=== PATIENT | male | born 1975 | race Caucasian/White ===

== ENCOUNTER 2021-05-25 08:11 | Emergency (ER) | payer MEDICARE, OTHER ==
[~2021-05-25] VITALS: Ht 177.8 cm; Wt 68.2 kg
[2021-05-25] MEDS ORDERED: NORCO 10-325 T1 EACH PO ×2 (08:29→11:27)
[2021-05-25] MEDS ORDERED: DESYREL 100MG100 MG (08:29)
[2021-05-25] MEDS ORDERED: ATIVAN0.5 MG (08:29)
[2021-05-25 08:41] LABS: EOS # 0.38 K/mm3 (0.04-0.40); EOS % 2.5 % (0.0-4.0); HEMATOCRIT 46.4 % (42.0-52.0); LYMPH# 2.37 K/mm3 (1.50-4.00); MEAN CELL VOLUME 83 fl (78-100); MEAN CORPUSCULAR HEMOGLOBIN 27 pg (27-31); MEAN CORPUSCULAR HGB CONC 32 g/dL (33-37); MEAN PLATELET VOLUME 8.7 fl (7.4-10.4); NEU # 11.35 K/mm3 (1.40-6.50); PLATELET COUNT 315 K/mm3 (130-400); WHITE BLOOD COUNT 15.1 K/mm3 (4.8-10.8)
[2021-05-25 08:46] LABS: ALBUMIN 4.5 g/dL (3.5-5.0)
[2021-05-25 08:47] LABS: POTASSIUM 3.8 mmol/L (3.5-5.1); SODIUM 138 mmol/L (136-145)
[2021-05-25 08:48] LABS: CALCIUM 9.6 mg/dL (8.3-10.5)
[2021-05-25 08:49] LABS: GLUCOSE 127 mg/dL (75-110); TOTAL PROTEIN 7.8 g/dL (6.4-8.3)
[2021-05-25 08:50] LABS: CARBON DIOXIDE 24 mmol/L (22-29)
[2021-05-25 08:51] LABS: TOTAL BILIRUBIN 0.6 mg/dL (0.2-1.2)
[2021-05-25 08:54] LABS: AST-SGOT 15 U/L (5-34)
[2021-05-25 08:56] LABS: ALT/SGPT 17 U/L (0-55); LIPASE 101 U/L (8-78)
[2021-05-25 09:06] LABS: TROPONIN-I < 0.03 ng/mL (<0.030)
[2021-05-25 10:32] LABS: PH-URINE 7.5 (5.0 - 8.0); URINE APPEARANCE CLEAR; URINE BILIRUBIN NEGATIVE (NEGATIVE); URINE BLOOD NEGATIVE (NEGATIVE); URINE COLOR YELLOW; URINE GLUCOSE NEGATIVE (NEGATIVE); URINE KETONE NEGATIVE (NEGATIVE); URINE LEUKOCYTE ESTERASE NEGATIVE (NEGATIVE); URINE MUCUS PRESENT (NOT PRESENT); URINE NITRATE NEGATIVE (NEGATIVE); URINE PROTEIN(semi-quant) TRACE mg/dL (NEGATIVE); URINE UROBILINOGEN NORMAL (NORMAL)
[2021-05-25] MEDS ORDERED: PEPCID 20MG TAB20 MG PO (12:06)
[2021-05-25] MEDS ORDERED: CARAFATE 1GM1 G PO (12:06)
[2021-05-25] MEDS ORDERED: PROTONIX TR40 M1 PO (12:06)
[2021-05-25 12:28] VITALS: BP 108/87
== END 2021-05-25 12:10 | disposition home or self-care (01) ==
LOC: ED 08:11
PROVIDERS: Physician Assistant
DX: K86.1 Other chronic pancreatitis (principal); K21.9 Gastro-esophageal reflux disease without esophagitis; F17.210 Nicotine dependence, cigarettes, uncomplicated; Z20.822 Contact with and (suspected) exposure to COVID-19
CPT/HCPCS: J1885; J2405; J3010; J7030; Q9967

== ENCOUNTER 2021-06-14 09:50 | Emergency (ER) | payer MEDICARE, OTHER ==
[~2021-06-14] VITALS: Ht 177.8 cm; Wt 68.2 kg
[~2021-06-14 09:50] MED LIST: ATIVAN0.5 MG PO; CARAFATE 1GM1 G PO; DESYREL 100MG100 MG PO; NORCO 10-325 T1 EACH PO; PEPCID 20MG TAB20 MG PO; PROTONIX TR40 M1 PO
[2021-06-14] MEDS ORDERED: [UNRECOGNIZED DRUG - CODE] PO ×2 (10:17→17:23)
[2021-06-14 10:22] LABS: BASO # 0.09 K/mm3 (0.02-0.10); EOS # 0.35 K/mm3 (0.04-0.40); HEMATOCRIT 45.7 % (42.0-52.0); HEMOGLOBIN 14.3 g/dL (13.5-18.0); LYMPH# 1.85 K/mm3 (1.50-4.00); MEAN CELL VOLUME 83 fl (78-100); MEAN CORPUSCULAR HEMOGLOBIN 26 pg (27-31); MEAN CORPUSCULAR HGB CONC 31 g/dL (33-37); MEAN PLATELET VOLUME 8.5 fl (7.4-10.4); MONO # 0.97 K/mm3 (0.20-0.80); NEU # 14.29 K/mm3 (1.40-6.50); PLATELET COUNT 364 K/mm3 (130-400); RED BLOOD COUNT 5.51 M/mm3 (4.20-5.60); WHITE BLOOD COUNT 17.6 K/mm3 (4.8-10.8)
[2021-06-14 10:34] LABS: ALBUMIN 4.3 g/dL (3.5-5.0); POTASSIUM 4.8 mmol/L (3.5-5.1); SODIUM 143 mmol/L (136-145)
[2021-06-14 10:36] LABS: CALCIUM 9.6 mg/dL (8.3-10.5)
[2021-06-14 10:37] LABS: GLUCOSE 108 mg/dL (75-110); TOTAL PROTEIN 7.7 g/dL (6.4-8.3)
[2021-06-14 10:38] LABS: CARBON DIOXIDE 25 mmol/L (22-29)
[2021-06-14 10:39] LABS: TOTAL BILIRUBIN 0.5 mg/dL (0.2-1.2)
[2021-06-14 10:42] LABS: AST-SGOT 19 U/L (5-34)
[2021-06-14 10:43] LABS: ALT/SGPT 16 U/L (0-55)
[2021-06-14 10:44] LABS: LIPASE 105 U/L (8-78)
[2021-06-14 10:50] LABS: TROPONIN-I < 0.030 ng/mL (<0.030)
[2021-06-14 14:17] LABS: URINE APPEARANCE CLEAR; URINE COLOR YELLOW
[2021-06-14 14:18] LABS: URINE BILIRUBIN NEGATIVE (NEGATIVE); URINE BLOOD NEGATIVE (NEGATIVE); URINE GLUCOSE NEGATIVE (NEGATIVE); URINE KETONE NEGATIVE (NEGATIVE); URINE LEUKOCYTE ESTERASE NEGATIVE (NEGATIVE); URINE MUCUS PRESENT (NOT PRESENT); URINE NITRATE NEGATIVE (NEGATIVE); URINE PROTEIN(semi-quant) TRACE (NEGATIVE); URINE UROBILINOGEN NORMAL (NORMAL)
[2021-06-14 14:39] VITALS: BP 122/80
[2021-06-14] MEDS ORDERED: FAMOTIDINE20 MG PO (17:25)
== END 2021-06-14 14:42 | disposition other institution (70) ==
LOC: ED 09:50
PROVIDERS: Physician Assistant
DX: K85.90 Acute pancreatitis without necrosis or infection, unspecified (principal); K86.1 Other chronic pancreatitis; K21.9 Gastro-esophageal reflux disease without esophagitis; D72.829 Elevated white blood cell count, unspecified; F17.200 Nicotine dependence, unspecified, uncomplicated; Z79.899 Other long term (current) drug therapy; Z20.822 Contact with and (suspected) exposure to COVID-19
CPT/HCPCS: J1885; J2270; J2405; J7030; Q9967

== ENCOUNTER 2021-06-14 14:09 | Inpatient (IN) | payer MEDICARE, OTHER ==
[~2021-06-14] VITALS: Ht 177.8 cm; Wt 68.2 kg
[~2021-06-14 14:09] MED LIST changes: +[UNRECOGNIZED DRUG - CODE] PO
[2021-06-14 14:58] VITALS: BP 122/80
[2021-06-14 15:00] VITALS: BP 122/80
--- NOTE | 2021-06-14 16:00 | NUR ---
PATIENT ADMITTED TO ROOM 203 FROM ER FOR ACUTE ON CHRONIC PANCREATITIS, IV FLUIDS AND PAIN MEDS GIVEN. PATIENT IS CALM AND COOPERATIVE, NPO UNTIL PAIN AND NAUSEA IS RESOLVED. PATIENT ALERT AND ORIENTED, AMBULATES WITHOUT ASSIST.
[2021-06-14] MEDS ORDERED: [UNRECOGNIZED DRUG - CODE] PO (17:23)
[2021-06-14] MEDS ORDERED: FAMOTIDINE20 MG PO (17:25)
[2021-06-14 18:27] VITALS: BP 113/67
--- NOTE | 2021-06-14 18:39 | NUR ---
REPORT GIVEN TO GIOVANY LOZANO
--- NOTE | 2021-06-14 19:32 | NUR ---
Report received from Charlene Mccullough RN. Patient calls and states that he would like some ice chips and pain medication. Spoke with PA and ok for ice chips if patient is not nauseated. Patient denies nausea. Rates pain 7/10 to LLQ area. States it is a constant dull ache with intermittent sharp pain. MSO4 2 MG given SIVP. IVF infusing NS at 125 ML/HR. Site patent to [facility]. Assessment completed. Denies wants or needs at this time.
--- NOTE | 2021-06-14 21:45 | NUR ---
New bag of IVF hung. REHABILITATION TEACHER in to obtain V/S. Patient requests analgesic. Toradol IV given at this time. Tolerating scheduled PO medications taken with water and ice chips given sparingly. No nausea. Converses freely with staff.
[2021-06-14 23:05] VITALS: BP 109/68
--- NOTE | 2021-06-15 02:05 | NUR ---
Patient has been resting quietly with no signs of pain or distress. IVF infusing NS at 125 ML/HR.
--- NOTE | 2021-06-15 04:51 | NUR ---
Rested well all shift. Calls now to requests water. Reminded of NPO status and advised can have some ice chips. States "I'm well past that now, I have dealt with Pancreatitis". Denies nausea. Ice chips and small amount of water provided.
--- NOTE | 2021-06-15 05:33 | NUR ---
New bag of NS hung. Resting, denies need for analgesic.
[2021-06-15 05:57] VITALS: BP 100/61
--- NOTE | 2021-06-15 06:56 | NUR ---
Report to Suzette BEAULIEU.
[2021-06-15 07:23] LABS: BASO # 0.07 K/mm3 (0.02-0.10); EOS # 0.22 K/mm3 (0.04-0.40); EOS % 1.6 % (0.0-4.0); HEMATOCRIT 41.2 % (42.0-52.0); HEMOGLOBIN 12.9 g/dL (13.5-18.0); LYMPH# 1.48 K/mm3 (1.50-4.00); MEAN CELL VOLUME 84 fl (78-100); MEAN CORPUSCULAR HEMOGLOBIN 26 pg (27-31); MEAN CORPUSCULAR HGB CONC 31 g/dL (33-37); MEAN PLATELET VOLUME 8.4 fl (7.4-10.4); MONO # 0.87 K/mm3 (0.20-0.80); PLATELET COUNT 347 K/mm3 (130-400); RED BLOOD COUNT 4.89 M/mm3 (4.20-5.60); RED CELL DISTRIBUTION WIDTH 14.9 % (11.5-14.5); WHITE BLOOD COUNT 13.6 K/mm3 (4.8-10.8)
[2021-06-15 07:29] LABS: ALBUMIN 3.5 g/dL (3.5-5.0)
[2021-06-15 07:30] LABS: POTASSIUM 4.3 mmol/L (3.5-5.1)
[2021-06-15 07:31] LABS: CALCIUM 8.3 mg/dL (8.3-10.5)
[2021-06-15 07:32] LABS: TOTAL PROTEIN 5.6 g/dL (6.4-8.3)
[2021-06-15 07:34] LABS: TOTAL BILIRUBIN 0.8 mg/dL (0.2-1.2)
--- NOTE | 2021-06-15 08:14 | NUR ---
Patient resting in bed watching TV. A&Ox4, c/o pain in abd rating it a 5 out of 10 on a numeric pain scale. Requesting to advance his diet. See new orders. Reports he slept well last night. Eager to go home soon. Bed in lowest and locked position. Call light within reach.
--- NOTE | 2021-06-15 09:00 | NUR ---
Patient demanding to go home at this time. Requesting to speak with physician stating, "What am I still doing here, what is the plan?" Patient signed AMA document. Understands teaching in regards to leaving against medical advice. Fluids stopped at this time. IV removed. All personal belongings sent with patient. Ambulated from room to personal vehicle.
== END 2021-06-15 09:45 | disposition left against medical advice (07) | DRG 440 ==
LOC: MED/SURG 14:09
PROVIDERS: ADMIT Physician Assistant
DX: K85.90 Acute pancreatitis without necrosis or infection, unspecified (principal); K21.9 Gastro-esophageal reflux disease without esophagitis; E86.0 Dehydration; D72.829 Elevated white blood cell count, unspecified; F17.210 Nicotine dependence, cigarettes, uncomplicated; Z79.891 Long term (current) use of opiate analgesic
CPT/HCPCS: C9113; J1650; J1885; J2270; J2405; J7030

== ENCOUNTER → 2021-07-25 | Outpatient (CLI) | payer MEDICARE, OTHER ==
[~2021-07-25] MED LIST changes: +FAMOTIDINE20 MG PO
[2021-07-25 15:12] LABS: HEMOGLOBIN 13.4 g/dL (13.5-18.0); MEAN PLATELET VOLUME 8.1 fl (7.4-10.4); RED BLOOD COUNT 5.15 M/mm3 (4.20-5.60); RED CELL DISTRIBUTION WIDTH 14.9 % (11.5-14.5)
[2021-07-25 15:23] LABS: POTASSIUM 4.7 mmol/L (3.5-5.1)
[2021-07-25 15:24] LABS: CALCIUM 9.1 mg/dL (8.3-10.5)
== END | disposition still patient (30) ==
LOC: LAB 13:53
PROVIDERS: Internal Medicine Interventional Cardiology
DX: Z01.812 Encounter for preprocedural laboratory examination (principal); I81 Portal vein thrombosis

== ENCOUNTER 2021-10-15 10:41 | Emergency (ER) | payer MEDICARE, OTHER ==
[~2021-10-15] VITALS: Ht 177.8 cm; Wt 69.5 kg
[2021-10-15 11:25] LABS: BASO # 0.05 K/mm3 (0.02-0.10); EOS # 0.35 K/mm3 (0.04-0.40); EOS % 2.4 % (0.0-4.0); HEMATOCRIT 46.5 % (42.0-52.0); HEMOGLOBIN 14.8 g/dL (13.5-18.0); LYMPH# 1.79 K/mm3 (1.50-4.00); MEAN CELL VOLUME 81 fl (78-100); MEAN CORPUSCULAR HEMOGLOBIN 26 pg (27-31); MEAN CORPUSCULAR HGB CONC 32 g/dL (33-37); MEAN PLATELET VOLUME 8.4 fl (7.4-10.4); MONO # 0.96 K/mm3 (0.20-0.80); NEU # 11.26 K/mm3 (1.40-6.50); PLATELET COUNT 259 K/mm3 (130-400); RED BLOOD COUNT 5.71 M/mm3 (4.20-5.60); RED CELL DISTRIBUTION WIDTH 15.5 % (11.5-14.5); WHITE BLOOD COUNT 14.5 K/mm3 (4.8-10.8)
[2021-10-15 11:33] LABS: ALBUMIN 4.4 g/dL (3.5-5.0)
[2021-10-15 11:34] LABS: POTASSIUM 4.3 mmol/L (3.5-5.1)
[2021-10-15 11:35] LABS: CALCIUM 9.7 mg/dL (8.3-10.5)
[2021-10-15 11:36] LABS: TOTAL PROTEIN 7.6 g/dL (6.4-8.3)
[2021-10-15 11:38] LABS: TOTAL BILIRUBIN 0.7 mg/dL (0.2-1.2)
[2021-10-15 13:26] LABS: PH-URINE 6.5 (5.0 - 8.0); URINE APPEARANCE CLEAR; URINE BILIRUBIN NEGATIVE (NEGATIVE); URINE BLOOD NEGATIVE (NEGATIVE); URINE COLOR STRAW; URINE GLUCOSE NEGATIVE (NEGATIVE); URINE KETONE NEGATIVE (NEGATIVE); URINE LEUKOCYTE ESTERASE NEGATIVE (NEGATIVE); URINE NITRATE NEGATIVE (NEGATIVE); URINE PROTEIN(semi-quant) NEGATIVE (NEGATIVE); URINE UROBILINOGEN NORMAL (NORMAL); URINE WBC 0-1 /hpf (0-3)
[2021-10-15 16:40] VITALS: BP 120/74
== END 2021-10-15 16:40 | disposition short-term general hospital (02) ==
LOC: ED 10:41
PROVIDERS: Family Medicine
DX: K86.1 Other chronic pancreatitis (principal); E86.0 Dehydration; D72.829 Elevated white blood cell count, unspecified; F17.210 Nicotine dependence, cigarettes, uncomplicated; Z90.49 Acquired absence of other specified parts of digestive tract
CPT/HCPCS: J2405; J2543; J3010; J7030; Q9967

== ENCOUNTER 2021-11-01 15:57 | Emergency (ER) | payer MEDICARE, OTHER ==
[2021-11-01 16:57] LABS: HEMATOCRIT 44.7 % (42.0-52.0); HEMOGLOBIN 14.2 g/dL (13.5-18.0); MEAN CELL VOLUME 82 fl (78-100); MEAN CORPUSCULAR HEMOGLOBIN 26 pg (27-31); MEAN CORPUSCULAR HGB CONC 32 g/dL (33-37); MEAN PLATELET VOLUME 8.8 fl (7.4-10.4); PLATELET COUNT 396 K/mm3 (130-400); RED BLOOD COUNT 5.48 M/mm3 (4.20-5.60); RED CELL DISTRIBUTION WIDTH 15.8 % (11.5-14.5); WHITE BLOOD COUNT 18.7 K/mm3 (4.8-10.8)
[2021-11-01 17:08] LABS: ALBUMIN 4.1 g/dL (3.5-5.0)
[2021-11-01 17:09] LABS: CALCIUM 9.3 mg/dL (8.3-10.5)
[2021-11-01 17:11] LABS: TOTAL PROTEIN 7.2 g/dL (6.4-8.3)
[2021-11-01 17:13] LABS: TOTAL BILIRUBIN 1.3 mg/dL (0.2-1.2)
[2021-11-01 17:38] LABS: LYMPHOCYTE 6 % (20-51); MONOCYTE 8 % (3-10); NEUTROPHILS 85 % (42-75)
[2021-11-01 19:09] VITALS: BP 110/84
== END 2021-11-01 19:10 | disposition home or self-care (01) ==
LOC: ED 15:57
PROVIDERS: Physician Assistant
DX: K86.1 Other chronic pancreatitis (principal); D72.829 Elevated white blood cell count, unspecified; L02.211 Cutaneous abscess of abdominal wall; F17.210 Nicotine dependence, cigarettes, uncomplicated; Z90.49 Acquired absence of other specified parts of digestive tract; Z28.310 Unvaccinated for COVID-19
CPT/HCPCS: J2270; J2405; J2543; J2550; J7030; Q9967

== ENCOUNTER 2021-12-29 07:23 | Emergency (ER) | payer MEDICARE, OTHER ==
[~2021-12-29] VITALS: Ht 177.8 cm; Wt 68.2 kg
[2021-12-29 08:33] LABS: BASO # 0.02 K/mm3 (0.02-0.10); EOS # 0.21 K/mm3 (0.04-0.40); EOS % 2.8 % (0.0-4.0); HEMATOCRIT 46.7 % (42.0-52.0); HEMOGLOBIN 14.9 g/dL (13.5-18.0); MEAN CELL VOLUME 79 fl (78-100); MEAN CORPUSCULAR HEMOGLOBIN 25 pg (27-31); MEAN CORPUSCULAR HGB CONC 32 g/dL (33-37); MEAN PLATELET VOLUME 9.2 fl (7.4-10.4); MONO # 0.74 K/mm3 (0.20-0.80); NEU # 5.42 K/mm3 (1.40-6.50); PLATELET COUNT 264 K/mm3 (130-400); RED BLOOD COUNT 5.92 M/mm3 (4.20-5.60); RED CELL DISTRIBUTION WIDTH 15.8 % (11.5-14.5); WHITE BLOOD COUNT 7.6 K/mm3 (4.8-10.8)
[2021-12-29 08:38] LABS: ALBUMIN 4.3 g/dL (3.5-5.0)
[2021-12-29 08:39] LABS: POTASSIUM 4.3 mmol/L (3.5-5.1)
[2021-12-29 08:41] LABS: TOTAL PROTEIN 7.1 g/dL (6.4-8.3)
[2021-12-29 08:43] LABS: TOTAL BILIRUBIN 1.1 mg/dL (0.2-1.2)
[2021-12-29 14:08] LABS: URINE WBC 0 /hpf (0-3)
[2021-12-29 14:28] LABS: URINE APPEARANCE CLEAR; URINE BILIRUBIN NEGATIVE (NEGATIVE); URINE BLOOD NEGATIVE (NEGATIVE); URINE COLOR YELLOW; URINE GLUCOSE NEGATIVE (NEGATIVE); URINE KETONE 1+ (NEGATIVE); URINE LEUKOCYTE ESTERASE NEGATIVE (NEGATIVE); URINE MUCUS PRESENT (NOT PRESENT); URINE NITRATE NEGATIVE (NEGATIVE); URINE PROTEIN(semi-quant) TRACE (NEGATIVE); URINE UROBILINOGEN NORMAL (NORMAL)
[2021-12-29 15:59] VITALS: BP 103/74
== END 2021-12-29 16:15 | disposition short-term general hospital (02) ==
LOC: ED 07:23
PROVIDERS: Nurse Practitioner
DX: K85.90 Acute pancreatitis without necrosis or infection, unspecified (principal); F17.210 Nicotine dependence, cigarettes, uncomplicated; Z90.49 Acquired absence of other specified parts of digestive tract; Z96.89 Presence of other specified functional implants; Z28.310 Unvaccinated for COVID-19
CPT/HCPCS: J1885; J2060; J2270; J2405; J3010; J7030; Q9967

== ENCOUNTER 2022-01-08 03:31 | Emergency (ER) | payer MEDICARE, OTHER ==
[~2022-01-08] VITALS: Ht 177.8 cm; Wt 60.5 kg
[2022-01-08 04:40] LABS: BASO # 0.02 K/mm3 (0.02-0.10); EOS # 0.35 K/mm3 (0.04-0.40); EOS % 3.6 % (0.0-4.0); HEMATOCRIT 40.5 % (42.0-52.0); HEMOGLOBIN 12.7 g/dL (13.5-18.0); LYMPH# 1.57 K/mm3 (1.50-4.00); MEAN CELL VOLUME 81 fl (78-100); MEAN CORPUSCULAR HEMOGLOBIN 25 pg (27-31); MEAN CORPUSCULAR HGB CONC 31 g/dL (33-37); MEAN PLATELET VOLUME 8.3 fl (7.4-10.4); MONO # 1.08 K/mm3 (0.20-0.80); NEU # 6.56 K/mm3 (1.40-6.50); PLATELET COUNT 395 K/mm3 (130-400); RED CELL DISTRIBUTION WIDTH 15.3 % (11.5-14.5); WHITE BLOOD COUNT 9.6 K/mm3 (4.8-10.8)
[2022-01-08 04:53] LABS: CALCIUM 9.4 mg/dL (8.3-10.5)
[2022-01-08 04:56] LABS: TOTAL BILIRUBIN 0.4 mg/dL (0.2-1.2)
[2022-01-08 10:43] VITALS: BP 144/96
== END 2022-01-08 10:43 | disposition home or self-care (01) ==
LOC: ED 03:31
PROVIDERS: Family Medicine
DX: K85.90 Acute pancreatitis without necrosis or infection, unspecified (principal); K86.1 Other chronic pancreatitis; F17.200 Nicotine dependence, unspecified, uncomplicated; Z90.49 Acquired absence of other specified parts of digestive tract; Z96.89 Presence of other specified functional implants; Z28.310 Unvaccinated for COVID-19
CPT/HCPCS: C9113; J2405; J2550; J2765; J3010; J7030; Q9967

== ENCOUNTER → 2023-08-05 | Outpatient (CLI) | payer MEDICARE, OTHER ==
[~2023-08-05] MED LIST changes: +DESYREL DIVIDO150 M1 PO; +Iohexol 300 - 100 ML VIAL IV ONE; +PANTOPRAZOLE SO40 MG PO; +TRAMADOL 50 MG TAB PO
== END ==
LOC: RAD 09:20
DX: K86.1 Other chronic pancreatitis (principal); K83.8 Other specified diseases of biliary tract
CPT/HCPCS: Q9967

== ENCOUNTER 2024-06-14 23:04 | Emergency (ER) | payer MEDICARE, OTHER ==
[~2024-06-14] VITALS: Ht 167.6 cm; Wt 67.6 kg
[~2024-06-14 23:04] MED LIST changes: -Iohexol 300 - 100 ML VIAL IV ONE
[2024-06-14 23:43] LABS: BASO # 0.04 K/mm3 (0.02-0.10); EOS # 0.25 K/mm3 (0.04-0.40); EOS % 1.9 % (0.0-4.0); HEMATOCRIT 44.3 % (42.0-52.0); HEMOGLOBIN 15.1 g/dL (13.5-18.0); LYMPH# 1.93 K/mm3 (1.50-4.00); MEAN CELL VOLUME 83 fl (78-100); MEAN CORPUSCULAR HEMOGLOBIN 28 pg (27-31); MEAN CORPUSCULAR HGB CONC 34 g/dL (33-37); MEAN PLATELET VOLUME 8.9 fl (7.4-10.4); MONO # 1.17 K/mm3 (0.20-0.80); NEU # 9.79 K/mm3 (1.40-6.50); PLATELET COUNT 193 K/mm3 (130-400); RED BLOOD COUNT 5.35 M/mm3 (4.20-5.60); RED CELL DISTRIBUTION WIDTH 14.4 % (11.5-14.5); WHITE BLOOD COUNT 13.2 K/mm3 (4.8-10.8)
[2024-06-14] MEDS ORDERED: NS 1,000 ML IV SCH (23:45)
[2024-06-14] MEDS ORDERED: Mag/Al Hydrox/Simeth Susp 30 ML CUP PO ONE (23:45)
[2024-06-14] MEDS ORDERED: Ketorolac 30 MG/ML VIAL IV ONE (23:45)
[2024-06-14 23:51] LABS: ALBUMIN 4.6 g/dL (3.5-5.0)
[2024-06-14 23:52] LABS: CALCIUM 10.2 mg/dL (8.3-10.5)
[2024-06-14 23:54] LABS: TOTAL PROTEIN 7.6 g/dL (6.4-8.3)
[2024-06-14 23:55] LABS: TOTAL BILIRUBIN 1.3 mg/dL (0.2-1.2)
[2024-06-15] MEDS ORDERED: Iohexol 300 - 100 ML VIAL IV ONE (00:22)
[2024-06-15] MEDS ORDERED: NS 1,000 ML IV SCH ×2 (01:30→01:45)
[2024-06-15] MEDS ORDERED: Morphine 4 MG/ML VIAL IV ONE ×2 (01:30→01:45)
[2024-06-15] MEDS ORDERED: Ondansetron 4 MG/2 ML VIAL IV ONE (01:30)
[2024-06-15] MEDS ORDERED: Pantoprazole 40 MG in NS 10 ML IV ONE (02:30)
[2024-06-15 07:45] VITALS: BP 105/57
== END 2024-06-15 07:58 | disposition short-term general hospital (02) ==
LOC: ED 23:04
PROVIDERS: Physician Assistant
DX: K85.90 Acute pancreatitis without necrosis or infection, unspecified (principal); K83.8 Other specified diseases of biliary tract; K31.1 Adult hypertrophic pyloric stenosis; K52.9 Noninfective gastroenteritis and colitis, unspecified
CPT/HCPCS: J0744; J1836; J1885; J2270; J2405; J2470; J7030; Q9967

== ENCOUNTER → 2024-08-10 | Outpatient (CLI) | payer MEDICARE, OTHER | LOC: LAB 07:05 | DX: K90.3 Pancreatic steatorrhea (principal) ==